=== PATIENT | female | born 1970 | race Caucasian/White ===

== ENCOUNTER 2018-12-21 13:58 | Emergency (ER) | payer BC ==
[2018-12-21 14:05] VITALS: BP 152/82
--- NOTE | 2018-12-21 15:26 | RADIOLOGY REPORT (SQ) ---
EXAM DESCRIPTION: U/S EXTREMITY NONVASCULAR LTD COMPLETED DATE/TIME: 12/21/2018 3:13 pm REASON FOR STUDY: left leg swelling around achilles tendon COMPARISON: None. TECHNIQUE: Dynamic and static grayscale images acquired of the localized site of clinical concern an d recorded on PACS. Additional selected color Doppler and spectral images recorded. SITE OF CONCERN: Left Achilles LIMITATIONS: None. FINDINGS: There is increased heterogeneous echotexture and focal thickening in the left Achilles ten don midbody measuring approximately 1 cm thickness over a length of 2.8 cm common this may reflect te ndinosis without a focal visualized discrete tear. . VASCULAR: No increased or decreased vascularity. No occlusions. OTHER: No other significant finding. IMPRESSION: There is increased heterogeneous echotexture and focal thickening in the left Achilles t endon midbody measuring approximately 1 cm thickness over a length of 2.8 cm common this may reflect tendinosis without a focal visualized discrete tear. TECHNICAL DOCUMENTATION: JOB ID: [id number] [employer]- All Rights Reserved Reading location - IP/workstation name: [email or web address]
--- NOTE | 2018-12-21 15:37 | ER Document Report ---
HPI - HPI Time Seen by Provider: 12/21/18 14:13 Pain Level: 2 Context: Patient is a 48-year-old female who presents to the emergency department with a chief complaint of left ankle pain. Patient states that 3 days ago she developed a knot on the back of her left ankle. Patient states there was no injury, there is no fall, she did not hear a pop or a snap. Patient states that she was seen at the urgent care on Saturday and told it potentially could be her Achilles tendon. 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 Patient states she does work 12 hours a day and is continuously walking. Patient states she is always had some sort of left ankle pain but never the bulging to the area which started 3 days ago. Patient states she has attempted to continue to work and stand on her feet but that this morning the pain was intense so she decided to come to the emergency department. Patient is able to bear weight and ambulate but reports this make the pain worse. Patient reports she has not taken anything for her discomfort. - CONSTITUTIONAL Constitutional: DENIES: Fever, Chills - EENT EENT: DENIES: Sore Throat, Ear Pain, Eye problems - NEURO Neurology: DENIES: Headache, Weakness, Vision blurred, Dizzinesss / Vertigo - CARDIOVASCULAR Cardiovascular: DENIES: Chest pain - RESPIRATORY Respiratory: DENIES: Trouble Breathing, Coughing - GASTROINTESTINAL Gastrointestinal: DENIES: Abdominal Pain, Black / Bloody Stools - URINARY Urinary: DENIES: Dysuria, Urgency, Frequency - REPRODUCTIVE Reproductive: DENIES: : - MUSCULOSKELETAL Musculoskeletal: REPORTS: Extremity pain - left ankle Past Medical History - General Information source: Patient - Social History Smoking Status: Never Smoker Chew tobacco use (# tins/day): No Frequency of alcohol use: None Drug Abuse: None Lives with: Family Family History: None Patient has suicidal ideation: No Patient has homicidal ideation: No - Past Medical History Cardiac Medical History: Reports: None Pulmonary Medical History: Reports: None EENT Medical History: Reports: None Neurological Medical History: Reports: None Endocrine Medical History: Reports: None Renal/ Medical History: Reports: None. Denies: Hx Peritoneal Dialysis Malignancy Medical History: Reports: None GI Medical History: Reports: None Musculoskeletal Medical History: Reports None Skin Medical History: Reports None Psychiatric Medical History: Reports: None Traumatic Medical History: Reports: None Infectious Medical History: Reports: None Past Surgical History: Reports: Hx Cholecystectomy, Hx Hysterectomy Vertical Provider Document - CONSTITUTIONAL Agree With Documented VS: Yes Exam Limitations: No Limitations General Appearance: No Apparent Distress - INFECTION CONTROL TRAVEL OUTSIDE OF THE [place] IN LAST 30 DAYS: No - HEENT HEENT: Atraumatic, Normocephalic, PERRLA - NECK Neck: Normal Inspection, Supple - RESPIRATORY Respiratory: Breath Sounds Normal, No Respiratory Distress - CARDIOVASCULAR Cardiovascular: Regular Rate, Regular Rhythm - GI/ABDOMEN Gastrointestinal: Abdomen Soft, Abdomen Non-Tender, Normal Bowel Sounds - MUSCULOSKELETAL/EXTREMETIES Notes: Patient has good flexion-extension of the left foot. Patient does not have any obvious swelling to the ankle or foot. There is no ecchymosis or erythema. Patient does have a slight bulge to the posterior Achilles tendon. This is tender to touch. Patient does have full range of motion to the left ankle. Patient has a +2 dorsalis pedis and posterior tibial pulse with palpation. - NEURO Level of Consciousness: Awake, Alert, Appropriate - DERM Integumentary: Warm, Dry, No Rash Course - Re-evaluation Re-evalutation: 12/21/18 16:34 Patient ultrasounds showed a thickening of the Achilles tendon which could be indicative of a tendinosis or tendinitis. There is no obvious sign of tear that they could visualize. I did inform the patient of the ultrasound results. I did inform her that due to the pain I will treat her like there is a possible tear and place her in a posterior splint and crutches. I did inform her that it is a 10 to tinnitus treated with rest, ice and elevation with NSAIDs such as ibuprofen. Patient states ultimately she is been having discomfort in this area since April but the swelling started on . Patient states she does have health insurance and will call the orthopedics that I have referred her to tomorrow to get a follow-up appointment. - Vital Signs Vital signs: Temp Pulse Resp BP Pulse Ox 98.9 F 91 17 152/82 H 97 12/21/18 14:02 12/21/18 14:02 12/21/18 14:02 12/21/18 14:02 12/21/18 14:02 - Diagnostic Test Radiology reviewed: Reports reviewed Radiology results interpreted by me: 12/21/18 15:32 Extremity Ultrasound 12/21/18 14:34 IMPRESSION: There is increased heterogeneous echotexture and focal thickening in the left Achilles tendon midbody measuring approximately 1 cm thickness over a length of 2.8 cm common this may reflect tendinosis without a focal visualized discrete tear. Procedures - Immobilization Left Ankle Pre-Proc Neuro Vasc Exam: Normal Immobilizer type: Posterior ankle Performed by: PCT Post-Proc Neuro Vasc Exam: Normal, Unchanged from pre-exam Alignment checked and good: Yes Discharge - Discharge Clinical Impression: Achilles tendinitis Qualifiers: Laterality: left Qualified Code(s): M76.62 - Achilles tendinitis, left leg Condition: Stable Disposition: HOME, SELF-CARE Additional Instructions: Today he was seen in the emergency department for ankle pain. You did have an area of swelling noted around the Achilles tendon. The ultrasound did show a possible tendinosis and possible tendinitis. This is when the Achilles tendon becomes inflamed and irritated which can cause pain and swelling around the affected tendon. Causes of this are overuse. The radiologist did not see an obvious tear of the Achilles tendon but you are being placed in a splint and should follow-up with orthopedics. We are going to place you in a splint in which she will need to keep clean dry and intact until you follow-up with orthopedics. Please rest, use ice and anti-inflammatories such as Aleve, Advil, ibuprofen. I would call orthopedics tomorrow to schedule a follow-up appointment. Please use the crutches to stay off of the leg as you need to rest. Prescriptions: Ibuprofen [Motrin 800 mg Tablet] 800 mg PO Q8H PRN #20 tab PRN Reason: Forms: Return to Work Referrals: RUBIA ZULETA JR, DO [ACTIVE PROVISIONAL STAFF] - Follow up as needed AREN BELTRAN MD [ACTIVE STAFF] - Follow up as needed JAGJIT ESPINOZA DO [ACTIVE STAFF] - Follow up as needed
== END 2018-12-21 16:39 | disposition home or self-care (01) ==
LOC: ER 13:58
PROC: 2W3RX1Z Immobilization of Left Lower Leg using Splint (ICD-10-PCS; principal; 2018-12-21)
DX: M76.62 Achilles tendinitis, left leg (principal); M25.572 Pain in left ankle and joints of left foot
CPT/HCPCS: 76882; 99283

== ENCOUNTER → 2018-12-24 | Outpatient (CLI) | payer BC | LOC: OD 11:09 | PROVIDERS: ATTEND Orthopaedic Surgery | DX: M25.50 Pain in unspecified joint (principal); R60.9 Edema, unspecified | CPT/HCPCS: 36415; 82306 ==

== ENCOUNTER → 2018-12-29 | Outpatient (CLI) | payer BC ==
--- NOTE | 2018-12-29 13:24 | WOMENS IMAGING REPORT ---
EXAM DESCRIPTION: BONE DENSITY HIP/SPINE COMPLETED DATE/TIME: 12/29/2018 10:21 am REASON FOR STUDY: Z13.820 Z13.820 ENCOUNTER FOR SCREENING FOR OSTEOPOROSIS COMPARISON: None. TECHNIQUE: Dual-Energy X-ray Absorptiometry (DEXA) of the AP Spine and Hip. LIMITATIONS: None. FINDINGS: LUMBAR SPINE: The bone mineral density (BMD) measured from L1-L4 in the AP projection correlates with a T-score of 0.6, which is normal as defined by the World Health Organization. BMD Change vs Baseline: N/A HIP: The bone mineral density (BMD) measured in the left hip correlates with a T-score of -0.1, which is n ormal as defined by the World Health Organization. BMD Change vs Baseline: N/A 10 year Fracture Risk Assessment: Major Osteoporotic Fracture: Not available. Hip Fracture: Not available. IMPRESSION: 1. LUMBAR SPINE WHO CLASSIFICATION: NORMAL. 2. HIP WHO CLASSIFICATION: NORMAL. OVERALL ASSESSMENT: WHO CLASSIFICATION: NORMAL. COMMENT: The World Health Organization defines low BMD as follows: T-score: Normal: Greater than -1.0 Osteopenia: Between -1.0 and -2.5 Osteoporosis: Less than -2.5 without fractures Established osteoporosis: Less than -2.5 with fractures In general, you may wish to consider: Diagnosis Treatment Follow-up DEXA Normal BMD Prevention 2-3 years Osteopenia Prevention/Therapy 1-2 years Osteoporosis Therapy Yearly TECHNICAL DOCUMENTATION: JOB ID: [id number] [employer]- All Rights Reserved Reading location - IP/workstation name: [email or web address]
== END ==
LOC: WI 10:24
PROVIDERS: ATTEND Orthopaedic Surgery
DX: Z13.820 Encounter for screening for osteoporosis (principal)
CPT/HCPCS: 77080

== ENCOUNTER → 2020-04-14 | Outpatient (CLI) | payer BC ==
[~2020-04-14] MED LIST: COVID-19 VACCINE (PFIZER)/PF 30 MCG/0.3 ML VIAL IM ONE; EPINEPHRINE INJ/PF 1 MG/1 ML AMPULE IM PRN
== END ==
LOC: EMPHEALTH 12:09
PROVIDERS: ATTEND Internal Medicine
DX: Z23 Encounter for immunization (principal)
CPT/HCPCS: 91300

== ENCOUNTER → 2020-05-05 | Outpatient (CLI) | payer BC | LOC: EMPHEALTH 12:53 | PROVIDERS: ATTEND Internal Medicine | DX: Z23 Encounter for immunization (principal) | CPT/HCPCS: 91300 ==